=== PATIENT | female | born 1960 | race Asian ===

== ENCOUNTER 2019-02-13 08:06 | Emergency (ER) | payer OTHER ==
--- OUTSIDE RECORDS SUMMARY | 2019-02-13 08:16 | XMS REPORT | Continuity of Care Document ---
:1960 External Reference #:[id number] Author Name Kavita Jacobs N.P. (transmitted by agent of provider Sherrie Castro-Murrieta) Address [facility], [place] [address] Care Team Providers Name Role Phone Trey Gavin MD - Endocrinology, Care Team Information Produce Department Supervisor Diabetes & Metabolism Radha Manzanares MD - Care Team Information Produce Department Supervisor [phone] Dermatology Problems Active Problems Provider Date Allergic rhinitis Connie De La Cruz MD Onset: 04/24/2014 Respiratory Conditions Due To Other Specified Connie De La Cruz MD Onset: 04/24 External Agent H/O: asbestos exposure Connie De La Cruz MD Onset: 05/28/2014 Social History Type Date Description Comments Sex Unknown Cigarette Use Quit 3 Years Ago Tobacco Use Start: Unknown End: Former Cigarette Smoker Unknown Smoking Status Reviewed: 01/20/19 Former Cigarette Smoker ETOH Use Occasionally consumes alcohol Tobacco Use Start: Unknown End: Patient is a former smoker Unknown Recreational Drug Use Never Used Drugs Tobacco Use Start: Unknown Light tobacco smoker (10 or fewer cigarettes/day) Exercise Type/Frequency Exercises regularly Allergies, Adverse Reactions, Alerts Active Allergies Reaction Severity Comments Date Sulfa Antibiotics 04/24/2014 Medications Active Medications SIG Qnty Indications Ordering Date Provider Estradiol Take one tab po 30tabs Kavita Jacobs, 01/20/2019 1mg Tablets daily N.P. Testosterone Cream Apply to thigh Kavita Jacobs, 12/12/2018 5MG daily N.P. Intrarosa insert one vaginal 28units Kavita Jacobs, 12/11/2018 6.5mg suppository nightly N.P. Insert Progesterone 1 by mouth every 30caps Kavita Jacobs, 09/12/2018 Micronized day N.P. 100mg Capsules Trimethoprim 1 tab by mouth prn Trey Gavin MD 100mg after intercourse Tablets Soolantra once a day to [place], 1% Cream valdo Garcia MD Ibuprofen 2 tabs by mouth Unknown 200mg every 6 hours as Capsules needed History Medications Estradiol apply one patch 1units Kavita Jacobs, N.P. 12/23/2018 - 0.075mg/24HR weekly 01/20/[address] one patch 4units Kavita Jacobs, N.P. 10/28/2018 - 0.05mg/24HR Patches td weekly 01/20/2019 Weekly Cl[place]ara Apply one patch 4units Kavita Jacobs, N.P. 09/12/2018 - 0.0375mg/24HR weekly 10/28/2018 Patches Weekly No Active Medications Unknown 08/21/2018 - 08/21/2018 Medications Administered in Office Medication SIG Qnty Indications Ordering Provider Date Triamcinolone (Kenalog) Mary Alas PA-C 09/03/2018 Injection Immunizations Description No Information Available Vital Signs Date Vital Result Comment 01/20/2019 8:41am Height 66 inches 5'6" Weight 153.00 lb Heart Rate 72 /min BP Systolic 96 mmHg BP Diastolic 62 mmHg O2 % BldC Oximetry 97 % BMI (Body Mass Index) 24.7 kg/m2 Last Menstrual Period [id number] 12/12/2018 9:19am Height 66 inches 5'6" Weight 150.00 lb Heart Rate 78 /min BP Systolic 124 mmHg BP Diastolic 71 mmHg Body Temperature 96.6 F Pain Level 3 BMI (Body Mass Index) 24.2 kg/m2 Results Test Date Facility Test Result H/L Range Note Laboratory test 12/12/2018 [facility] Estradiol <40 pg/mL [address] [place] [address] [phone] Free Estradiol 12/12/2018 [facility] Percent Free 2.3 % [address] [place] [address] [phone] Free Estradiol 0.35 pg/mL Abnormal 3 Sex Hormone Binding Globulin 35.6 nmol/L 4 Total Estradiol 15 pg/mL 5 Laboratory test finding 12/12/2018 [facility] Progesterone 1.6 ng/mL [address] [place] [address] [phone] TSH (Thyroid Stim Horm) 1.74 mcIU/mL Normal 0.34-5.60 Estradiol, Confirmatory, S 16 pg/mL 7 Laboratory test 08/21/2018 [facility] Testosterone < 10.00 Normal 8-[address] Total ng/[place] [address] [phone] Sex Hormone Binding Globulin 34 nmol/L 8 1 Estradiols <40 pg/mL are sent to a reference lab for low range testing. Postmenopausal Females < 20 Ovulating females: by day in cycle relative to LH Peak Follicular phase - 12 10-50 - 4 60-200 Mid-cycle - 1 120-375 Luteal phase + 2 50-155 + 6 60-260 + 12 15-115 2 Reference Range: Adult Females: 1.6 - 3.6 3 Reference Range: Adult Females: 0.6 - 7.1 4 Reference Range: >49y: 17.3 - 125.0 Test Performed by: [facility] [address] [place], [place] [id number] 5 Reference Range: Adult Females Follicular: 30 - 100 Luteal: 70 - 300 Postmenopausal: <15 6 Female reference ranges for Progesterone: Follicular phase.......0.3 - 1.5 ng/ml Mid-luteal phase.......5.2 - 18.5 ng/ml Postmenopausal.........< 0.8 ng/ml 1st trimester.........4.7 - 50.0 ng/ml 2nd trimester.........19.4 - 45.3 ng/ml 7 REFERENCE VALUE Premenopausal: 15-350 (E2 levels vary widely through the menstrual cycle.) Postmenopausal: <10 ADDITIONAL INFORMATION This test was developed and its performance characteristics determined by [facility] in a manner consistent with CLIA requirements. This test has not been cleared or approved by the U.S. Food and Drug Administration. Test Performed by: [facility] [email or web address] - [address] [address] Sql Report Writer: Nicolas Wells M.D. Ph.D.; CLIA# [id number] REFERENCE VALUE 18-144 (non-) Test Performed by: [facility] - [address] [address] Procedures Date Code Description Status 09/03/2018 88103 Inject/Drain Joint/Bursa Major W/O US Completed 02/23/2018 96385183 Colonoscopy Completed Medical Devices Description No Information Available Encounters Type Date Location Provider Dx Diagnosis Office Visit 12/12/2018 [facility] Ana Guzman MD M25.511 Pain in right 9:15a at [facility] M75.41 Impingement syndrome of right shoulder Office Visit 12/11/2018 3:40p [facility] Kavita Jacobs R68.82 Decreased libido [facility] N[facility]. R10.2 Pelvic and perineal pain N95.1 Menopausal and female climacteric states Office Visit 09/03/2018 9:00a [facility] Ana Guzman M25.511 Pain in right at [facility] shoulder M75.41 Impingement syndrome of right shoulder Office Visit 08/21/2018 9:30a [facility] Nurse Visit Z85.3 Personal history of [facility] malignant neoplasm of breast Office Visit 08/21/2018 10:00a [facility] Kavita Jacobs N95.1 Menopausal and [facility] N[facility] female climacteric states G47.00 Insomnia, unspecified Assessments Date Code Description Provider 01/20/2019 R68.82 Decreased libido Kavita Jacobs N.P. 12/12/2018 M25.511 Pain in right shoulder Ana Guzman MD 12/12/2018 M75.41 Impingement syndrome of right shoulder Ana Guzman MD 12/11/2018 R68.82 Decreased libido Kavita Jacobs N.P. 12/11/2018 R10.2 Pelvic and perineal pain Kavita Jacobs N.P. 12/11/2018 N95.1 Menopausal and female climacteric states Kavita Jacobs N.P. 09/03/2018 M25.511 Pain in right shoulder Mary Alas PA-C 09/03/2018 M25.511 Pain in right shoulder Ana Guzman MD 09/03/2018 M75.41 Impingement syndrome of right shoulder Ana Guzman MD 08/21/2018 Z85.3 Personal history of malignant neoplasm Nurse Visit [facility] 08/21/2018 N95.1 Menopausal and female climacteric states Kavita Jacobs N.P. 08/21/2018 G47.00 Insomnia, unspecified Kavita Jacobs N.P. Plan of Treatment Future Appointment(s):03/03/2019 3:40 pm - Kavita Jacobs N.P. at [facility]01/20/2019 - Kavita Jacobs N.P.R68.82 Decreased libidoComments:D mannose - consider for UTI prophylaxisCheck testosterone Functional Status Description No Information Available Mental Status Description No Information Available Referrals Description No Information Available
[2019-02-13 08:25] VITALS: BP 111/70
--- NOTE | 2019-02-13 08:39 | UC ---
Complaint Female HPI - HPI Summary HPI Summary: 58 yo femalebwith the onset of dysuria/urgency and frequency since last pm hx UTIs no back pain no n/v - History Of Current Complaint Chief Complaint: UCGU Stated Complaint: URINARY ISSUE Time Seen by Provider: 02/13/19 08:36 Hx Obtained From: Patient Hx Last Menstrual Period: 1.5 weeks ago Onset/Duration: Gradual Onset, Lasting Hours Timing: Intermittent, Lasting Seconds Severity Initially: Moderate Severity Currently: None Pain Intensity: 5 - when voiding Pain Scale Used: 0-10 Numeric Character: Burning Aggravating Factor(s): Urination Alleviating Factor(s): Nothing Associated Signs And Symptoms: Positive: Negative Related Hx: Similar Episode/Dx as: - UTI - Allergies/Home Medications Allergies/Adverse Reactions: Allergies Allergy/AdvReac Type Severity Reaction Status Date / Time Sulfa (Sulfonamide Allergy Hives Verified 02/13/19 08:26 Antibiotics) Home Medications: Home Medications Estradiol/Progesterone [Bijuva 1 mg-100 mg Capsule] 1 each PO DAILY 02/13/19 [ History Confirmed 02/13/19] PMH/Surg Hx/FS Hx/Imm Hx Previously Healthy: Yes Cancer History: Breast Cancer - Surgical History Surgical History: Yes Surgery Procedure, Year, and Place: dermoid cyst removal from ovaries bilaterally, bilat mastectomy - Family History Known Family History: Positive: Hypertension - Social History Alcohol Use: Occasionally Substance Use Type: None Smoking Status (MU): Never Smoked Tobacco Review of Systems All Other Systems Reviewed And Are Negative: Yes Constitutional: Positive: Negative Skin: Positive: Negative Eyes: Positive: Negative ENT: Positive: Negative Respiratory: Positive: Negative Cardiovascular: Positive: Negative Gastrointestinal: Positive: Negative Genitourinary: Positive: Dysuria, Frequency, Urgency Motor: Positive: Negative Neurovascular: Positive: Negative Musculoskeletal: Positive: Negative Neurological: Positive: Negative Psychological: Positive: Negative Physical Exam Triage Information Reviewed: Yes Appearance: Well-Appearing, No Pain Distress, Well-Nourished Vital Signs: Initial Vital Signs Temp 97.1 F 02/13/19 08:21 Pulse 61 02/13/19 08:21 Resp 18 02/13/19 08:21 BP 111/70 02/13/19 08:21 Pulse Ox 97 02/13/19 08:21 Vital Signs Reviewed: Yes Eyes: Positive: Conjunctiva Clear ENT: Positive: Hearing grossly normal. Negative: Nasal congestion, Nasal drainage, Trismus, Muffled voice, Hoarse voice Dental Exam: Normal Neck: Positive: Supple, Nontender, No Lymphadenopathy Respiratory: Positive: Lungs clear, Normal breath sounds, No respiratory distress, No accessory muscle use Cardiovascular: Positive: RRR, No Murmur Abdomen Description: Positive: Nontender. Negative: CVA Tenderness (R), CVA Tenderness (L) Bowel Sounds: Positive: Present Musculoskeletal: Positive: ROM Intact, No Edema Neurological Exam: Normal Neurological: Positive: Alert Psychological Exam: Normal Diagnostics - Laboratory Lab Results: UA ++ leuks, ++ RBCs Complaint Female Dx - Differential Dx/Diagnosis Provider Diagnosis: Acute cystitis Discharge ED - Sign-Out/Discharge Documenting (check all that apply): Patient Departure All imaging exams completed and their final reports reviewed: No Studies - Discharge Plan Condition: Stable Disposition: HOME Prescriptions: Cephalexin CAP* [Keflex CAP*] 500 mg PO BID #10 cap Patient Education Materials: Urinary Tract Infection in Women (ED) Referrals: Trey Gavin MD [Primary Care Provider] - 4 Days (if not better) - Billing Disposition and Condition Condition: STABLE Disposition: Home
== END 2019-02-13 09:02 | disposition home or self-care (01) ==
LOC: UCEAST 08:06
DX: N30.00 Acute cystitis without hematuria (principal); Z85.3 Personal history of malignant neoplasm of breast; Z88.2 Allergy status to sulfonamides
CPT/HCPCS: 81003; 87077; 87086; 87186; 99212; G0463

== ENCOUNTER 2019-03-21 20:54 | Emergency (ER) | payer OTHER ==
--- NOTE | 2019-03-21 21:02 | UC ---
Complaint Female HPI - HPI Summary HPI Summary: 58 yo female presents with UTI symptoms. She tells me that about 1.5 hours ago she had a sudden onset of burning with urination, bladder pressure, and urinary frequency. She has had UTIs in the past and this feels the same, but has never had one come on so suddenly. She denies fever, chills, abdominal pain, n/v, flank pain, back pain. No vaginal bleeding or discharge. Has never had a kidney stone in the past - History Of Current Complaint Stated Complaint: BURNING URINATION Time Seen by Provider: 03/21/19 21:01 Hx Obtained From: Patient Hx Last Menstrual Period: 1.5 weeks ago Onset/Duration: Sudden Onset Severity Initially: Mild Severity Currently: Mild Pain Intensity: 3 Pain Scale Used: 0-10 Numeric - Allergies/Home Medications Allergies/Adverse Reactions: Allergies Allergy/AdvReac Type Severity Reaction Status Date / Time Sulfa (Sulfonamide Allergy Hives Verified 03/21/19 21:08 Antibiotics) Home Medications: Home Medications Vaginal Insert For Lubrication 1 dose VAGINAL DAILY 03/21/19 [History Confirmed 03/21/19] PMH/Surg Hx/FS Hx/Imm Hx - Additional Past Medical History Additional PMH: None - Surgical History Surgical History: Yes Surgery Procedure, Year, and Place: dermoid cyst removal from ovaries bilaterally, bilat mastectomy - Family History Known Family History: Positive: Hypertension - Social History Lives: With Family Alcohol Use: Occasionally Substance Use Type: None Smoking Status (MU): Never Smoked Tobacco Review of Systems All Other Systems Reviewed And Are Negative: No Constitutional: Positive: Negative Skin: Positive: Negative Respiratory: Positive: Negative Cardiovascular: Positive: Negative Gastrointestinal: Positive: Negative Genitourinary: Positive: Dysuria Neurological: Positive: Negative Psychological: Positive: Negative Physical Exam - Summary Physical Exam Summary: GENERAL: NAD. WDWN. No pain distress. SKIN: No rashes, sores, lesions, or open wounds. NECK: Supple. Nontender. No lymphadenopathy. CHEST: CTAB. No r/r/w. No accessory muscle use. Breathing comfortably and in no distress. CV: RRR. Pulses intact. Cap refill <2seconds ABDOMEN: Soft. Mild ttp overlying bladder. No CVA tenderness. Bowel sounds present NEURO: Alert. PSYCH: Age appropriate behavior. Triage Information Reviewed: Yes Vital Signs: Vital Signs: Temp Pulse Resp BP Pulse Ox 98 F 79 16 130/75 98 03/21/19 20:59 03/21/19 20:59 03/21/19 20:59 03/21/19 20:59 03/21/19 20:59 Laboratory Tests 03/21/19 21:05 POC Urine Color Crys POC Urine Clarity Cloudy POC Urine pH 5.5 POC Ur Specif Mobile >= 1.030 POC Urine Protein 3+ A POC Ur Glucose (UA) Trace POC Urine Ketones Trace POC Urine Blood 3+ A POC Urine Nitrite Negative POC Urine Bilirubin 1+ A POC Urine Urobilinogen 0.2 POC U Leukocyte Esteras 1+ A Vital Signs Reviewed: Yes Complaint Female Dx - Course Course Of Treatment: UA as above. Low suspicion for stone at this time as she has no flank or back pain and no hx of stones. Discomfort is mostly during urination and pressure overlying bladder. In the clinic she was given toradol IM for her inflammation, keflex and pyridium for her UTI. - Differential Dx/Diagnosis Provider Diagnosis: UTI (urinary tract infection) Discharge ED - Sign-Out/Discharge Documenting (check all that apply): Patient Departure All imaging exams completed and their final reports reviewed: No Studies - Discharge Plan Condition: Stable Disposition: HOME Prescriptions: Cephalexin CAP* [Keflex CAP*] 500 mg PO BID #10 cap Phenazopyridine 200 mg (NF) [Pyridium 200 MG tab *] 200 mg PO TID #6 tab Patient Education Materials: Urinary Tract Infection in Women (ED) Referrals: Trey Gavin MD [Primary Care Provider] - Additional Instructions: If you develop a fever, shortness of breath, chest pain, new or worsening symptoms - please call your PCP or go to the ED immediately. - Billing Disposition and Condition Condition: STABLE Disposition: Home
[2019-03-21 21:08] VITALS: BP 130/75
[2019-03-21] MEDS ORDERED: Ketorolac *IM* INJ* 60 MG/2 ML VIAL IM ONE (21:13)
[2019-03-21] MEDS ORDERED: Cephalexin CAP* 500 MG PO ONE (21:17)
[2019-03-21] MEDS ORDERED: Phenazopyridine TAB* 100 MG PO ONE (21:17)
--- NOTE | 2019-03-23 16:19 | UC ---
- Progress Note Progress Note: call patient to assure sx have resolved --if not follow up as culture does not indicate UTI Course/Dx - Diagnoses Provider Diagnoses: UTI (urinary tract infection) Discharge ED - Sign-Out/Discharge Documenting (check all that apply): Post-Discharge Follow Up All imaging exams completed and their final reports reviewed: No Studies - Discharge Plan Condition: Stable Disposition: HOME Prescriptions: Cephalexin CAP* [Keflex CAP*] 500 mg PO BID #10 cap Phenazopyridine 200 mg (NF) [Pyridium 200 MG tab *] 200 mg PO TID #6 tab Patient Education Materials: Urinary Tract Infection in Women (ED) Referrals: Trey Gavin MD [Primary Care Provider] - Additional Instructions: If you develop a fever, shortness of breath, chest pain, new or worsening symptoms - please call your PCP or go to the ED immediately. - Billing Disposition and Condition Condition: STABLE Disposition: Home
== END 2019-03-21 22:06 | disposition home or self-care (01) ==
LOC: UCEAST 20:54
DX: N39.0 Urinary tract infection, site not specified (principal); Z88.2 Allergy status to sulfonamides
CPT/HCPCS: 81003; 87086; 96372; 99212; A9270-GY; G0463; J1885

== ENCOUNTER 2019-04-07 07:28 | Emergency (ER) | payer OTHER ==
[2019-04-07 07:44] VITALS: BP 101/57
[2019-04-07] MEDS ORDERED: Phenazopyridine TAB* 100 MG PO ONE (07:55)
--- NOTE | 2019-04-07 08:10 | UC ---
Complaint Female HPI - HPI Summary HPI Summary: She woke up at 4 AM this morning with typical symptoms of a UTI for her. She has frequency, urgency and dysuria. She also has some mild hematuria which is unusual for her. She has had that once before which was about 6 days ago. At that time she also had very sudden onset of symptomatology. She was given antibiotics and Pyridium but the culture came back negative. She has frequent urinary tract infections but has never seen a neurologist. She takes prophylactic trimethoprim after intercourse. Both the episode 6 days ago and the one today are consistent with the timing of having had intercourse. She's never had a kidney stone and has no flank pain at this time. - History Of Current Complaint Chief Complaint: UCGU Stated Complaint: PAIN WHEN URINATING Time Seen by Provider: 04/07/19 07:47 Hx Last Menstrual Period: 1.5 weeks ago Onset/Duration: Sudden Onset Timing: Constant Severity Initially: Moderate Severity Currently: Severe Pain Intensity: 8 Character: Burning Aggravating Factor(s): Urination Alleviating Factor(s): Nothing Associated Signs And Symptoms: Negative: Fever, Back Pain, Nausea, Vomiting(# Of Episodes =) - Allergies/Home Medications Allergies/Adverse Reactions: Allergies Allergy/AdvReac Type Severity Reaction Status Date / Time Sulfa (Sulfonamide Allergy Hives Verified 04/07/19 07:44 Antibiotics) Home Medications: Home Medications Ibuprofen 400 mg PO ONCE PRN 04/07/19 [History Confirmed 04/07/19] Testosterone 1 gm TOPICAL DAILY 04/07/19 [History Confirmed 04/07/19] PMH/Surg Hx/FS Hx/Imm Hx Previously Healthy: Yes - Surgical History Surgical History: Yes Surgery Procedure, Year, and Place: dermoid cyst removal from ovaries bilaterally, bilat mastectomy - Family History Known Family History: Positive: Hypertension - Social History Alcohol Use: Occasionally Substance Use Type: None Smoking Status (MU): Never Smoked Tobacco Review of Systems All Other Systems Reviewed And Are Negative: Yes Constitutional: Positive: Negative Skin: Positive: Negative Gastrointestinal: Positive: Abdominal Pain - Suprapubic Genitourinary: Positive: Dysuria, Hematuria, Frequency, Urgency Is Patient Immunocompromised?: No Physical Exam - Summary Physical Exam Summary: She is nontoxic in appearance with stable vital signs Triage Information Reviewed: Yes Appearance: Well-Appearing, No Pain Distress Vital Signs: Initial Vital Signs Temp 98 F 04/07/19 07:34 Pulse 81 04/07/19 07:34 Resp 18 04/07/19 07:34 BP 101/57 04/07/19 07:34 Pulse Ox 97 04/07/19 07:34 Vital Signs Reviewed: Yes Respiratory Exam: Normal Cardiovascular Exam: Normal Abdomen Description: Positive: Other: - Mild suprapubic tenderness. Negative: CVA Tenderness (R), CVA Tenderness (L) Skin Exam: Normal Complaint Female Dx - Course Course Of Treatment: Her UA shows red blood cells and leukocyte esterase. This may very well the UTI and I think it's important to treat that way until culture results are available. She may just have hematuria again which is causing her dysuria. I recommended she follow up with her PCP to consider urology referral if she continues to have episodes of hematuria. She has no symptoms consistent with a kidney stone at this time. - Differential Dx/Diagnosis Provider Diagnosis: UTI (urinary tract infection), Hematuria Discharge ED - Sign-Out/Discharge Documenting (check all that apply): Patient Departure All imaging exams completed and their final reports reviewed: No Studies - Discharge Plan Condition: Stable Disposition: HOME Patient Education Materials: Urinary Tract Infection in Women (ED), Hematuria ( ED) Referrals: Trey Gavin MD [Primary Care Provider] - - Billing Disposition and Condition Condition: STABLE Disposition: Home
--- NOTE | 2019-04-08 15:21 | UC ---
- Progress Note Progress Note: urine culture final - no growth no change [facility] Course/Dx - Diagnoses Provider Diagnoses: UTI (urinary tract infection), Hematuria Discharge ED - Sign-Out/Discharge Documenting (check all that apply): Post-Discharge Follow Up All imaging exams completed and their final reports reviewed: No Studies - Discharge Plan Condition: Stable Disposition: HOME Prescriptions: Nitrofurantoin Monohyd/M-Cryst [Macrobid 100 mg Capsule] 100 mg PO BID #10 cap Patient Education Materials: Urinary Tract Infection in Women (ED), Hematuria ( ED) Referrals: Trey Gavin MD [Primary Care Provider] - - Billing Disposition and Condition Condition: STABLE Disposition: Home
== END 2019-04-07 08:36 | disposition home or self-care (01) ==
LOC: UCEAST 07:28
DX: N39.0 Urinary tract infection, site not specified (principal); R31.9 Hematuria, unspecified; Z88.2 Allergy status to sulfonamides
CPT/HCPCS: 81003; 87086; 99212; A9270-GY; G0463